=== PATIENT | female | born 1975 | race Caucasian/White ===

== ENCOUNTER → 2016-07-14 | Outpatient (CLI) | payer OTHER ==
[2016-07-14 15:14] LABS: ADJUSTED CALCIUM 9.2 mg/dL (8.4-10.2); ALBUMIN 4.2 gm/dL (3.5-5.0); BILIRUBIN,TOTAL 0.6 mg/dL (0.0-1.0); CALCIUM 9.4 mg/dL (8.4-10.2); CREATININE, serum 1.04 mg/dL (0.52-1.25); POTASSIUM 4.5 mmol/L (3.4-5.0)
[2016-07-14 15:44] LABS: THYROID STIMULATING HORMONE 2.78 uIU/mL (0.465-4.680)
[2016-07-14 16:59] LABS: HEMOGLOBIN 13.6 g/dl (12.5-16.0); MEAN CELL VOLUME 90 fl (80.0-100.0); MEAN CORPUSCULAR HEMOGLOBIN 29 pg (27.0-31.0); MEAN CORPUSCULAR HGB CONC 32 g/dl (33.0-37.0); MEAN PLATELET VOLUME 12.7 fl (7.4-10.4); PLATELET COUNT 169 K/mm3 (130-400); RED BLOOD COUNT 4.65 M/mm3 (4.10-5.30); REDCELL DISTRIBUTION WIDTH-CV 12.9 % (11.5-14.5)
[2016-07-15 09:26] LABS: PH 6 (5-8); SQUAMOUS EPITHELIAL 0-2 /hpf; URINE APPEARANCE Clear; URINE BACTERIA None Seen /hpf; URINE BILIRUBIN Negative (NEGATIVE); URINE BLOOD Negative (NEGATIVE); URINE COLOR Yellow; URINE GLUCOSE Negative (NEGATIVE); URINE KETONE Negative (NEGATIVE); URINE RBC None Seen /hpf; URINE UROBILINOGEN Negative (NEGATIVE); URINE WBC 0-2 /hpf
== END ==
LOC: COL.LAB 06:04
PROVIDERS: Family Medicine
DX: Z00.00 Encounter for general adult medical examination without abnormal findings (principal)

== ENCOUNTER → 2016-11-11 | Outpatient (REF) | LOC: WSOH 16:15 | DX: Z02.89 Encounter for other administrative examinations (principal) ==

== ENCOUNTER → 2017-03-07 | Outpatient (CLI) | payer OTHER | LOC: COL.RAD 13:25 | DX: M19.072 Primary osteoarthritis, left ankle and foot (principal) | CPT/HCPCS: J3301 ==

== ENCOUNTER → 2017-03-07 | Outpatient (CLI) | payer OTHER | LOC: MC.RAD 14:20 | DX: Z12.31 Encounter for screening mammogram for malignant neoplasm of breast (principal) ==

== ENCOUNTER 2018-01-26 05:42 | Observation (INO) | payer OTHER ==
[2018-01-26] VITALS (10 sets, daily range): BP systolic 100–121; BP diastolic 65–78; PULSE 55–77; TEMP 97.9–98.9
[~2018-01-26] VITALS: Ht 162.6 cm; Wt 62.6 kg
[2018-01-26] MEDS ORDERED: 00186-0372-20 IH (05:58)
[2018-01-26] MEDS ORDERED: CLARITIN 1010 MG/TAB PO (05:59)
[2018-01-26] MEDS ORDERED: FLONASE NASAL S16 GM NS (05:59)
[2018-01-26] MEDS ORDERED: PROAIR HFA0.09 MG/AC IH (06:00)
[2018-01-27 00:50] VITALS: BP 113/70; PULSE 62; TEMP 98.2
[2018-01-27] MEDS ORDERED: PERCOCET 325 MG1 TA2 PO (08:56)
[2018-01-27 09:03] VITALS: BP 110/72; PULSE 65; TEMP 98.2
== END 2018-01-27 11:30 | disposition home or self-care (01) ==
LOC: SDCO 05:42 → OB 08:48 → SDCO 18:30 → OB 18:30
DX: D25.1 Intramural leiomyoma of uterus (principal); N83.02 Follicular cyst of left ovary; N92.1 Excessive and frequent menstruation with irregular cycle; N94.6 Dysmenorrhea, unspecified; N81.4 Uterovaginal prolapse, unspecified; N80.3 Endometriosis of pelvic peritoneum; N73.6 Female pelvic peritoneal adhesions (postinfective); J45.909 Unspecified asthma, uncomplicated; Z79.51 Long term (current) use of inhaled steroids; Z88.2 Allergy status to sulfonamides; Z82.49 Family history of ischemic heart disease and other diseases of the circulatory system; Z83.3 Family history of diabetes mellitus
CPT/HCPCS: G0378; J0690; J1100; J1885; J2270; J2405; J2704; J2710; J3010; J7120

== ENCOUNTER → 2018-06-15 | Outpatient (CLI) | payer OTHER ==
[~2018-06-15] MED LIST: 00186-0372-20 IH; CLARITIN 1010 MG/TAB PO; FLONASE NASAL S16 GM NS; PERCOCET 325 MG1 TA2 PO; PROAIR HFA0.09 MG/AC IH
== END ==
LOC: MC.RAD 08:12
DX: Z12.31 Encounter for screening mammogram for malignant neoplasm of breast (principal)

== ENCOUNTER → 2018-12-04 | Outpatient (CLI) | payer OTHER ==
[2018-12-04 07:51] LABS: COLLECTION METHOD CLEAN CATCH
[2018-12-04 08:12] LABS: HEMOGLOBIN 12.1 g/dl (12.5-16.0); MEAN CELL VOLUME 87 fl (80.0-100.0); MEAN CORPUSCULAR HEMOGLOBIN 28 pg (27.0-31.0); MEAN CORPUSCULAR HGB CONC 33 g/dl (33.0-37.0); MEAN PLATELET VOLUME 12.3 fl (7.4-10.4); PLATELET COUNT 166 K/mm3 (130-400); RED BLOOD COUNT 4.26 M/mm3 (4.10-5.30); REDCELL DISTRIBUTION WIDTH-CV 13.2 % (11.5-14.5)
[2018-12-04 08:13] LABS: MUCOUS Present /lpf; PH 7 (5-8); URINE APPEARANCE Clear; URINE BACTERIA None Seen /hpf; URINE BILIRUBIN Negative (NEGATIVE); URINE BLOOD Negative (NEGATIVE); URINE COLOR Yellow; URINE GLUCOSE Negative (NEGATIVE); URINE KETONE Negative (NEGATIVE); URINE LEUKOCYTE ESTERASE Negative (NEGATIVE); URINE NITRATE Negative (NEGATIVE); URINE PROTEIN(semi-quant) Negative (NEGATIVE); URINE RBC 0-2 /hpf; URINE UROBILINOGEN Negative (NEGATIVE); URINE WBC 0-2 /hpf
[2018-12-04 08:17] LABS: ALBUMIN 4.2 gm/dL (3.5-5.0); BILIRUBIN,TOTAL 0.7 mg/dL (0.0-1.0); CALCIUM 9.1 mg/dL (8.4-10.2); CHOLESTEROL RISK RATIO 2.1; CREATININE, serum 0.85 (0.52-1.25); POTASSIUM 4.2 mmol/L (3.4-5.0)
[2018-12-04 08:20] LABS: HEMATOCRIT 36.9 % (37.0-47.0)
[2018-12-04 08:47] LABS: THYROID STIMULATING HORMONE 2.83 uIU/mL (0.465-4.680)
== END ==
LOC: COL.LAB 07:39
PROVIDERS: Family Medicine
DX: Z00.00 Encounter for general adult medical examination without abnormal findings (principal)

== ENCOUNTER 2019-03-15 08:05 | Day surgery (SDC) | payer OTHER ==
[~2019-03-15] VITALS: Ht 162.6 cm; Wt 61.9 kg
[2019-03-15 08:33] VITALS: BP 118/74; PULSE 68; TEMP 98
[2019-03-15] MEDS ORDERED: ZYRTEC 10MG10 MG PO (08:46)
[2019-03-15] MEDS ORDERED: MULTI VITAMINS1 TAB PO (08:47)
[2019-03-15] MEDS ORDERED: EPA FISH OIL1 SGL PO (08:48)
--- NOTE | 2019-03-15 08:50 | NUR ---
TO RM 7 AT 0813- CALL LIGHT IN REACH WILL AIRWAYS OPERATIONS SPECIALIST AT TIME OF DISCHARGE
[2019-03-15 10:19] VITALS: BP 99/66; PULSE 66; TEMP 98.2
--- NOTE | 2019-03-15 10:19 | NUR ---
TO RM 7 PER CART FROM [facility] RESPONDS TO VERBAL STIMULI BY NODDING HEAD. OCCASIONAL OPENING EYES. DENIES PAIN OR DISCOMFORT DENIES N/V. DRESSINGS CLEAN AND INTACT COVERED WITH CAMERON SET. C/O BEING COLD - RECEIVED 3 NEW WARM BLANKETS.
[2019-03-15] MEDS ORDERED: ULTRAM 50MG TAB50 MG PO (10:31)
[2019-03-15 10:35] VITALS: BP 104/71; PULSE 57
--- NOTE | 2019-03-15 10:35 | NUR ---
SLEEPING QUIETLY WITH NO CHANGES.
[2019-03-15 10:50] VITALS: BP 97/70; PULSE 62
--- NOTE | 2019-03-15 10:50 | NUR ---
MORE AWAKE AND DRINKING WATER.
[2019-03-15 11:00] VITALS: BP 120/75; PULSE 57
--- NOTE | 2019-03-15 11:00 | NUR ---
AMBULATED TO BATHROOM WITH STAND BY ASSIST. VOIDED AND TOLERATED WELL. UPON RETURNING TO RECEIVED WARM BLANKET AND CRACKERS. PATIENT SITTING UP AND TEXTING ON PHONE.
[2019-03-15 11:15] VITALS: BP 111/75; PULSE 56
--- NOTE | 2019-03-15 11:15 | NUR ---
CAMERON SET DRESSING CLEAN DRY INTACT. PATIENT ON PHONE- NO DISTRESS NOTED.
--- NOTE | 2019-03-15 11:30 | NUR ---
RECEIVED DISCHARGE INSTRUCTIONS AND VERBALIZED UNDERSTANDING. DISCONTINUED IV AND INT- CATHETER INTACT.
--- NOTE | 2019-03-15 11:45 | NUR ---
DISCHARGED PER WC BY NURSING STAFF TO PRIVATE CAR IN CARE OF -[facility].
== END 2019-03-15 11:48 | disposition home or self-care (01) ==
LOC: SDCO 08:05
DX: K43.9 Ventral hernia without obstruction or gangrene (principal); J45.909 Unspecified asthma, uncomplicated; Z79.899 Other long term (current) drug therapy
CPT/HCPCS: J2250; J2405; J2704; J7120

== ENCOUNTER → 2019-10-22 | Outpatient (CLI) | payer OTHER ==
[~2019-10-22] MED LIST changes: +EPA FISH OIL1 SGL PO; +MULTI VITAMINS1 TAB PO; +ULTRAM 50MG TAB50 MG PO; +ZYRTEC 10MG10 MG PO
== END ==
LOC: MC.RAD 14:15
DX: Z12.31 Encounter for screening mammogram for malignant neoplasm of breast (principal)

== ENCOUNTER → 2019-12-07 | Outpatient (CLI) | payer OTHER ==
[2019-12-07 09:03] LABS: ALBUMIN 4.6 gm/dL (3.5-5.0); BILIRUBIN,TOTAL 0.7 mg/dL (0.0-1.0); CALCIUM 9.5 mg/dL (8.4-10.2); CHOLESTEROL RISK RATIO 1.8; CREATININE, serum 0.88 (0.52-1.25); POTASSIUM 4.4 mmol/L (3.4-5.0); TOTAL PROTEIN 7.4 gm/dL (6.4-8.2)
[2019-12-07 09:04] LABS: BASO % 0.5 % (0.0-2.0); EOS # 0.2 (0.0-0.7); EOS % 3.6 % (0-4.0); GRAN # 3.3 (1.4-6.5); GRAN % 56.9 % (42.2-75.2); HEMATOCRIT 39.1 % (37.0-47.0); HEMOGLOBIN 13.2 g/dl (12.5-16.0); LYMPH # 1.7 (1.2-3.4); LYMPH % 29.3 % (20.0-51.0); MEAN CELL VOLUME 86 fl (80.0-100.0); MEAN CORPUSCULAR HEMOGLOBIN 29 pg (27.0-31.0); MEAN CORPUSCULAR HGB CONC 34 g/dl (33.0-37.0); MONO # 0.6 (0.1-0.6); MONO % 9.5 % (1.7-9.3); PLATELET COUNT 198 K/mm3 (130-400); RED BLOOD COUNT 4.53 M/mm3 (4.10-5.30); REDCELL DISTRIBUTION WIDTH-CV 12.5 % (11.5-14.5)
[2019-12-07 09:33] LABS: THYROID STIMULATING HORMONE 2.05 uIU/mL (0.465-4.680)
[2019-12-07 13:46] LABS: COLLECTION METHOD CLEAN CATCH
[2019-12-07 14:04] LABS: MUCOUS Present /lpf; PH 5 (5-8); SQUAMOUS EPITHELIAL 0-2 /hpf; URINE APPEARANCE Hazy; URINE BACTERIA None Seen /hpf; URINE BILIRUBIN Negative (NEGATIVE); URINE BLOOD Negative (NEGATIVE); URINE COLOR Yellow; URINE GLUCOSE Negative (NEGATIVE); URINE KETONE 1+ (NEGATIVE); URINE LEUKOCYTE ESTERASE Negative (NEGATIVE); URINE NITRATE Negative (NEGATIVE); URINE PROTEIN(semi-quant) Negative (NEGATIVE); URINE RBC 0-2 /hpf; URINE UROBILINOGEN Negative (NEGATIVE); URINE WBC 0-2 /hpf
== END ==
LOC: COL.LAB 08:03
PROVIDERS: Family Medicine
DX: Z00.00 Encounter for general adult medical examination without abnormal findings (principal)

== ENCOUNTER → 2020-07-11 | Outpatient (CLI) | payer OTHER | LOC: COL.LAB 17:12 | DX: R68.82 Decreased libido (principal) ==

== ENCOUNTER → 2020-12-15 | Outpatient (CLI) | payer OTHER ==
[2020-12-15 08:11] LABS: HEMOGLOBIN 11.6 g/dl (12.5-16.0); MEAN CELL VOLUME 85 fl (80.0-100.0); MEAN CORPUSCULAR HEMOGLOBIN 29 pg (27.0-31.0); MEAN CORPUSCULAR HGB CONC 34 g/dl (33.0-37.0); MEAN PLATELET VOLUME 11.1 fl (7.4-10.4); PLATELET COUNT 187 K/mm3 (130-400); RED BLOOD COUNT 3.98 M/mm3 (4.10-5.30); REDCELL DISTRIBUTION WIDTH-CV 12.3 % (11.5-14.5)
[2020-12-15 08:30] LABS: ALBUMIN 3.8 gm/dL (3.5-5.0); BILIRUBIN,TOTAL 0.4 mg/dL (0.2-1.2); CHOLESTEROL RISK RATIO 2.1; CREATININE, serum 0.99 mg/dL (0.57-1.11); POTASSIUM 3.8 mmol/L (3.5-4.5); TOTAL PROTEIN 6.4 gm/dL (6.2-8.1)
[2020-12-15 08:50] LABS: THYROID STIMULATING HORMONE 2.282 uIU/mL (0.350-4.940)
[2020-12-15 11:19] LABS: COLLECTION METHOD CLEAN CATCH
[2020-12-15 11:25] LABS: MUCOUS Present /lpf; PH 7 (5-8); SQUAMOUS EPITHELIAL 0-2 /hpf; URINE APPEARANCE Clear; URINE BACTERIA None Seen /hpf; URINE BILIRUBIN Negative (NEGATIVE); URINE BLOOD Negative (NEGATIVE); URINE COLOR Yellow; URINE GLUCOSE Negative (NEGATIVE); URINE KETONE Negative (NEGATIVE); URINE LEUKOCYTE ESTERASE Negative (NEGATIVE); URINE NITRATE Negative (NEGATIVE); URINE PROTEIN(semi-quant) Negative (NEGATIVE); URINE RBC None Seen /hpf; URINE UROBILINOGEN Negative (NEGATIVE); URINE WBC 0-2 /hpf
== END ==
LOC: COL.LAB 07:37
PROVIDERS: Family Medicine
DX: Z00.00 Encounter for general adult medical examination without abnormal findings (principal)

== ENCOUNTER → 2020-12-19 | Outpatient (CLI) | payer OTHER | LOC: MC.RAD 08:31 | DX: Z12.31 Encounter for screening mammogram for malignant neoplasm of breast (principal); N64.89 Other specified disorders of breast ==

== ENCOUNTER → 2020-12-30 | Outpatient (CLI) | payer OTHER | LOC: MC.RAD 12-26 09:00 | DX: N63.20 Unspecified lump in the left breast, unspecified quadrant (principal) ==

== ENCOUNTER 2021-02-06 07:47 | Day surgery (SDC) | payer OTHER ==
[~2021-02-06] VITALS: Ht 162.6 cm; Wt 64.0 kg
[2021-02-06 08:03] VITALS: BP 113/80; PULSE 66; TEMP 97.6
[2021-02-06 08:55] VITALS: BP 102/73; PULSE 62; TEMP 97.4
--- NOTE | 2021-02-06 08:55 | NUR ---
Patient arrives to [facility] via cart, accompanied by endo RN Araseli. She is alert. She ambulates to the chair in her room with standby assist. Monitoring is applied - VSS and WNL on room air. She denies pain, nausea, or need. Offered and receives water and toast. PIV to TKO. Call light in reach.
[2021-02-06 09:10] VITALS: BP 108/78; PULSE 70
[2021-02-06 09:25] VITALS: BP 118/79; PULSE 55
--- NOTE | 2021-02-06 09:25 | NUR ---
Patient resting comfortably. Tolerated PO well. VSS. Denies pian or needs.
--- NOTE | 2021-02-06 09:38 | NUR ---
Patient has met discharge criteria. Discharge instructions are discussed. She denies any questions and verbalizes understanding. PIV is removed with catheter intact and hemostasis achieved. She changes to her clothing independently. She is escorted to the exit via wheelchair by staff. She is discharged to the care of her , who drives her home in a private vehicle at 0938.
== END 2021-02-06 09:38 | disposition home or self-care (01) ==
LOC: SDCO 07:47
DX: D12.8 Benign neoplasm of rectum (principal); R14.0 Abdominal distension (gaseous); K59.00 Constipation, unspecified; K58.9 Irritable bowel syndrome, unspecified; D50.9 Iron deficiency anemia, unspecified; J45.20 Mild intermittent asthma, uncomplicated; Z79.899 Other long term (current) drug therapy; Z90.710 Acquired absence of both cervix and uterus
CPT/HCPCS: J2704; J7030

== ENCOUNTER → 2021-03-17 | Outpatient (CLI) | payer OTHER ==
[2021-03-17 17:19] LABS: BASO % 0.5 % (0.0-2.0); EOS # 0.2 K/mm3 (0.0-0.7); EOS % 4.2 % (0.0-4.0); GRAN % 53.8 % (42.2-75.2); HEMATOCRIT 37.1 % (37.0-47.0); HEMOGLOBIN 12.4 g/dl (12.5-16.0); LYMPH # 1.7 K/mm3 (1.2-3.4); LYMPH % 30.4 % (20.0-51.0); MEAN CELL VOLUME 88 fl (80.0-100.0); MEAN CORPUSCULAR HEMOGLOBIN 29 pg (27-31); MEAN CORPUSCULAR HGB CONC 33 g/dl (33.0-37.0); MEAN PLATELET VOLUME 11.5 fl (7.4-10.4); MONO # 0.6 K/mm3 (0.1-0.6); MONO % 10.7 % (1.7-9.3); PLATELET COUNT 200 K/mm3 (130-400); RED BLOOD COUNT 4.22 M/mm3 (4.10-5.30); REDCELL DISTRIBUTION WIDTH-CV 12.6 % (11.5-14.5)
[2021-03-17 17:36] LABS: ALBUMIN 4.1 gm/dL (3.5-5.0); BILIRUBIN,TOTAL 0.3 mg/dL (0.2-1.2); C-REACTIVE PROTEIN 0.11 mg/dL (0.00-0.50); CREATININE, serum 0.95 mg/dL (0.57-1.11); POTASSIUM 4.2 mmol/L (3.5-4.5); TOTAL PROTEIN 6.8 gm/dL (6.2-8.1)
[2021-03-17 17:56] LABS: THYROID STIMULATING HORMONE 1.539 uIU/mL (0.350-4.940)
[2021-03-18 16:27] LABS: ESTRADIOL 126 pg/mL (()); T3 FREE (TRI-IODOTHYRONINE) 2.3 pg/mL (1.7-3.7)
[2021-03-20 07:36] LABS: TESTOSTERONE, BIOAVAIL LC-MS 2.5 ng/dL (2.8-16.5)
== END ==
LOC: COL.LAB 16:14
PROVIDERS: Obstetrics & Gynecology
DX: Z00.00 Encounter for general adult medical examination without abnormal findings (principal); E28.8 Other ovarian dysfunction; R53.83 Other fatigue

== ENCOUNTER → 2021-07-02 | Outpatient (CLI) | payer OTHER | LOC: MC.RAD 07:32 | DX: N63.25 Unspecified lump in the left breast, overlapping quadrants (principal) ==

== ENCOUNTER → 2021-12-09 | Outpatient (CLI) | payer OTHER ==
[2021-12-09 08:34] LABS: HEMATOCRIT 37.8 % (37.0-47.0); HEMOGLOBIN 12.5 g/dl (12.5-16.0); MEAN CELL VOLUME 88 fl (80.0-100.0); MEAN CORPUSCULAR HEMOGLOBIN 29 pg (27-31); MEAN CORPUSCULAR HGB CONC 33 g/dl (33.0-37.0); MEAN PLATELET VOLUME 11.7 fl (7.4-10.4); PLATELET COUNT 204 K/mm3 (130-400); RED BLOOD COUNT 4.28 M/mm3 (4.10-5.30); REDCELL DISTRIBUTION WIDTH-CV 12.6 % (11.5-14.5)
[2021-12-09 08:52] LABS: SQUAMOUS EPITHELIAL 0-2 /hpf (0-10); URINE BACTERIA Rare /hpf (NONE SEEN); URINE RBC None Seen /hpf (0-2); URINE WBC 0-2 /hpf (0-2)
[2021-12-09 08:54] LABS: PH 6.5 (5-8); URINE APPEARANCE Clear (CLEAR/HAZY); URINE BLOOD Negative (NEGATIVE); URINE COLOR Yellow (YELLOW); URINE GLUCOSE Negative (NEGATIVE); URINE KETONE Negative (NEGATIVE); URINE NITRATE Negative (NEGATIVE); URINE PROTEIN(semi-quant) Negative (NEGATIVE); URINE UROBILINOGEN 0.2 (NEGATIVE)
[2021-12-09 08:57] LABS: BILIRUBIN,TOTAL 0.7 mg/dL (0.2-1.2); CALCIUM 8.9 mg/dL (8.4-10.2); CHOLESTEROL RISK RATIO 2.9; CREATININE, serum 0.92 mg/dL (0.57-1.11); POTASSIUM 4.6 mmol/L (3.5-4.5); TOTAL PROTEIN 6.9 gm/dL (6.2-8.1)
[2021-12-09 09:10] LABS: BAND 5 % (0-10); EOSINOPHIL 5 % (0-4); LYMPHOCYTE 21 % (20.0-51.0); NEUTROPHILS 61 % (42.0-75.2); PLATELET ESTIMATE NORMAL (NORMAL)
[2021-12-09 09:17] LABS: THYROID STIMULATING HORMONE 1.593 uIU/mL (0.350-4.940)
[2021-12-09 09:34] LABS: COLLECTION METHOD CLEAN CATCH
== END ==
LOC: COL.LAB 07:50
PROVIDERS: Family Medicine
DX: Z00.00 Encounter for general adult medical examination without abnormal findings (principal)

== ENCOUNTER → 2022-01-22 | Outpatient (CLI) | payer OTHER | LOC: MC.RAD 10:06 | DX: Z12.31 Encounter for screening mammogram for malignant neoplasm of breast (principal) ==